=== PATIENT | female | born 1965 | race Caucasian/White ===

== ENCOUNTER 2017-06-08 19:25 | Inpatient (IN) | payer MEDICARE, OTHER ==
[2017-06-08 21:05] LABS: ADD MAN DIFF? NO
[2017-06-08] MEDS: ONDANSETRON 4 MG INJ IV (21:06)
[2017-06-08] MEDS: AZITHROMYCIN 250 MG TAB PO (21:07)
[2017-06-08] MEDS: SOD CHLORIDE 0.9% 500 ML IV (21:07)
[2017-06-08] MEDS: morphine 4 MG/ML VIAL IV (21:07)
[2017-06-08 21:09] LABS: BASOPHILS % 0.3 % (0.0-2.0); EOSINOPHILS # 0.3 10^3/ul (0.0-0.5); EOSINOPHILS % 3.8 % (0.0-7.0); HEMATOCRIT 35.5 % (37.0-47.0); HEMOGLOBIN 12.3 g/dl (12.0-16.0); LYMPHOCYTES # 1.6 10^3/ul (0.8-2.9); LYMPHOCYTES % 19.6 % (15.0-51.0); MEAN CORPUSCULAR HEMOGLOBIN 29.6 pg (29.0-33.0); MEAN CORPUSCULAR HGB CONC 34.6 g/dl (32.0-37.0); MEAN CORPUSCULAR VOLUME 85.3 fl (82.0-101.0); MEAN PLATELET VOLUME 9.3 fl (7.4-10.4); MONOCYTE # 0.6 10^3/ul (0.3-0.9); NEUTROPHIL # 5.4 10^3/ul (1.6-7.5); PLATELET COUNT 248 10^3/UL (140-415); RED BLOOD COUNT 4.16 10^6/ul (4.20-5.40); RED CELL DISTRIBUTION WIDTH 14.3 % (11.5-14.5)
[2017-06-08 21:09] LABS: WHITE BLOOD COUNT 7.9 10^3/ul (4.8-10.8)
[2017-06-08 21:16] LABS: ADD UMIC YES; UR ASCORBIC ACID NEGATIVE (NEGATIVE); UR BACTERIA FEW /HPF (NONE SEEN); UR BILIRUBIN (Dip) NEGATIVE (NEGATIVE); UR BLOOD (Dip) 2+ mg/dL (NEGATIVE); UR CLARITY SLIGHTLY CLOUDY (CLEAR); UR COLOR YELLOW (YELLOW); UR GLUCOSE (Dip) NEGATIVE (NEGATIVE); UR KETONES (Dip) NEGATIVE (NEGATIVE); UR LEUKOCYTE ESTERASE (Dip) 3+ Leu/ul (NEGATIVE); UR NITRITE (Dip) NEGATIVE (NEGATIVE); UR RBC 7 /HPF (0-5); UR SPECIFIC GRAVITY (Dip) 1.004 (1.003-1.030); UR SQUAMOUS EPITHELIAL CELL FEW /HPF (FEW); UR TOTAL PROTEIN (Dip) NEGATIVE (NEGATIVE); UR UROBILINOGEN (Dip) NEGATIVE (NEGATIVE); UR WBC 29 /HPF (0-5)
[2017-06-08 21:29] LABS: ALANINE AMINOTRANSFERASE 28 IU/L (13-69); ALBUMIN 4.1 g/dl (3.3-4.9); ALKALINE PHOSPHATASE 106 IU/L (42-121); ANION GAP 14 (8-16); ASPARTATE AMINO TRANSFERASE 29 IU/L (15-46); BILIRUBIN,INDIRECT 0.1 mg/dl (0-1.1); BILIRUBIN,TOTAL 0.1 mg/dl (0.2-1.3); BLOOD UREA NITROGEN 11 mg/dl (7-20); CALCIUM 9.7 mg/dl (8.4-10.2); CARBON DIOXIDE 27 mmol/L (21-31); CHLORIDE 102 mmol/L (97-110); CREATININE 0.76 mg/dl (0.44-1.00); GLUCOSE 97 mg/dl (70-220); LIPASE 180 U/L (23-300); POTASSIUM 3.8 mmol/L (3.5-5.1); SODIUM 139 mmol/L (135-144); TOTAL PROTEIN 7.5 g/dl (6.1-8.1)
[2017-06-08] MEDS: CEFTRIAXONE 250 MG INJ IM (21:46)
[2017-06-08] MEDS: DICYCLOMINE 20 MG INJ IM (22:30)
[2017-06-08] MEDS ORDERED: ONDANSETRON 4 MG INJ IV (23:00)
[2017-06-08] MEDS ORDERED: ACETAMINOPHEN 325 MG TAB PO (23:00)
[2017-06-08] MEDS: LORAZEPAM 2 MG INJ IV (23:57)
[2017-06-08] MEDS: LIDOCAINE 2% VISC 15 ML CUP PO (23:57)
[2017-06-08] MEDS: SOD CHLORIDE 0.9% 1,000 ML IV (23:58)
[2017-06-09] MEDS ORDERED: NACL 0.9% 3 ML SYG IV
[2017-06-09] MEDS: SOD CHLORIDE 0.9% 1,000 ML IV ×2 (02:41→19:35)
[2017-06-09] MEDS: ONDANSETRON 4 MG INJ IV (02:44)
[2017-06-09] MEDS: CEFTRIAXONE 1 GM/50 ML (PMX) 50 ML IVPB (02:44)
[2017-06-09] MEDS: LORAZEPAM 2 MG INJ IV (04:19)
[2017-06-09 05:22] LABS: ADD MAN DIFF? NO
[2017-06-09 05:29] LABS: WHITE BLOOD COUNT 6.3 10^3/ul (4.8-10.8)
[2017-06-09 05:29] LABS: BASOPHILS % 0.2 % (0.0-2.0); EOSINOPHILS # 0.3 10^3/ul (0.0-0.5); EOSINOPHILS % 4.6 % (0.0-7.0); HEMATOCRIT 32.2 % (37.0-47.0); HEMOGLOBIN 10.9 g/dl (12.0-16.0); LYMPHOCYTES # 1.4 10^3/ul (0.8-2.9); LYMPHOCYTES % 22.4 % (15.0-51.0); MEAN CORPUSCULAR HEMOGLOBIN 29.9 pg (29.0-33.0); MEAN CORPUSCULAR HGB CONC 33.9 g/dl (32.0-37.0); MEAN CORPUSCULAR VOLUME 88.2 fl (82.0-101.0); MEAN PLATELET VOLUME 9.3 fl (7.4-10.4); MONOCYTE # 0.5 10^3/ul (0.3-0.9); MONOCYTES % 8.4 % (0.0-11.0); NEUTROPHILS % 64.1 % (39.0-77.0); PLATELET COUNT 186 10^3/UL (140-415); RED BLOOD COUNT 3.65 10^6/ul (4.20-5.40); RED CELL DISTRIBUTION WIDTH 14.5 % (11.5-14.5)
[2017-06-09 06:22] LABS: ALANINE AMINOTRANSFERASE 32 IU/L (13-69); ALBUMIN 3.3 g/dl (3.3-4.9); ALBUMIN/GLOBULIN RATIO 1.26; ALKALINE PHOSPHATASE 66 IU/L (42-121); ANION GAP 11 (8-16); ASPARTATE AMINO TRANSFERASE 29 IU/L (15-46); BILIRUBIN,INDIRECT 0.1 mg/dl (0-1.1); BILIRUBIN,TOTAL 0.1 mg/dl (0.2-1.3); BLOOD UREA NITROGEN 9 mg/dl (7-20); CALCIUM 8.3 mg/dl (8.4-10.2); CARBON DIOXIDE 27 mmol/L (21-31); CHLORIDE 108 mmol/L (97-110); CHOL/HDL RATIO 2.9 RATIO; CHOLESTEROL 146 mg/dl (100-200); GLUCOSE 93 mg/dl (70-220); HDL CHOLESTEROL 50 mg/dl (37-92); LDL CHOLESTEROL,CALCULATED 77 mg/dl; MAGNESIUM 1.6 mg/dl (1.7-2.5); SODIUM 142 mmol/L (135-144); TOTAL PROTEIN 5.9 g/dl (6.1-8.1); TRIGLYCERIDES 96 mg/dl (0-149)
[2017-06-09 07:46] LABS: HEMOGLOBIN A1C 5.5 % (0-5.9)
[2017-06-09 10:17] LABS: ADD MAN DIFF? NO
[2017-06-09 10:19] LABS: WHITE BLOOD COUNT 5.8 10^3/ul (4.8-10.8)
[2017-06-09 10:19] LABS: BASOPHILS % 0.3 % (0.0-2.0); EOSINOPHILS # 0.3 10^3/ul (0.0-0.5); HEMATOCRIT 31.6 % (37.0-47.0); HEMOGLOBIN 10.6 g/dl (12.0-16.0); LYMPHOCYTES # 1.4 10^3/ul (0.8-2.9); LYMPHOCYTES % 24.5 % (15.0-51.0); MEAN CORPUSCULAR HEMOGLOBIN 29.7 pg (29.0-33.0); MEAN CORPUSCULAR HGB CONC 33.5 g/dl (32.0-37.0); MEAN CORPUSCULAR VOLUME 88.5 fl (82.0-101.0); MEAN PLATELET VOLUME 9.1 fl (7.4-10.4); MONOCYTE # 0.5 10^3/ul (0.3-0.9); MONOCYTES % 8.5 % (0.0-11.0); NEUTROPHIL # 3.5 10^3/ul (1.6-7.5); NEUTROPHILS % 61.5 % (39.0-77.0); PLATELET COUNT 201 10^3/UL (140-415); RED BLOOD COUNT 3.57 10^6/ul (4.20-5.40); RED CELL DISTRIBUTION WIDTH 14.4 % (11.5-14.5)
[2017-06-09] MEDS ORDERED: DIATR MEGLU/DIATRIZOATE SODIUM 120 ML BTL (11:05)
[2017-06-09] MEDS: MAGNESIUM SULFATE 2 GM/50 ML 50 ML IVPB (13:40)
[2017-06-09] MEDS: morphine 2 MG INJ IV ×2 (16:26→22:20)
[2017-06-09 17:38] LABS: ADD MAN DIFF? NO
[2017-06-09 17:42] LABS: WHITE BLOOD COUNT 6.6 10^3/ul (4.8-10.8)
[2017-06-09 17:42] LABS: BASOPHILS % 0.3 % (0.0-2.0); EOSINOPHILS # 0.3 10^3/ul (0.0-0.5); EOSINOPHILS % 4.7 % (0.0-7.0); HEMATOCRIT 37.4 % (37.0-47.0); HEMOGLOBIN 12.4 g/dl (12.0-16.0); LYMPHOCYTES # 1.3 10^3/ul (0.8-2.9); LYMPHOCYTES % 19.1 % (15.0-51.0); MEAN CORPUSCULAR HEMOGLOBIN 29.3 pg (29.0-33.0); MEAN CORPUSCULAR HGB CONC 33.2 g/dl (32.0-37.0); MEAN CORPUSCULAR VOLUME 88.4 fl (82.0-101.0); MONOCYTE # 0.5 10^3/ul (0.3-0.9); MONOCYTES % 7.5 % (0.0-11.0); NEUTROPHIL # 4.5 10^3/ul (1.6-7.5); NEUTROPHILS % 67.9 % (39.0-77.0); PLATELET COUNT 228 10^3/UL (140-415); RED BLOOD COUNT 4.23 10^6/ul (4.20-5.40); RED CELL DISTRIBUTION WIDTH 14.5 % (11.5-14.5)
[2017-06-09 22:35] LABS: ADD MAN DIFF? NO
[2017-06-09 22:36] LABS: BASOPHILS % 0.3 % (0.0-2.0); EOSINOPHILS # 0.3 10^3/ul (0.0-0.5); EOSINOPHILS % 4.4 % (0.0-7.0); HEMOGLOBIN 11.5 g/dl (12.0-16.0); LYMPHOCYTES # 1.3 10^3/ul (0.8-2.9); LYMPHOCYTES % 20.7 % (15.0-51.0); MEAN CORPUSCULAR HEMOGLOBIN 29.9 pg (29.0-33.0); MEAN CORPUSCULAR HGB CONC 33.8 g/dl (32.0-37.0); MEAN CORPUSCULAR VOLUME 88.5 fl (82.0-101.0); MEAN PLATELET VOLUME 8.8 fl (7.4-10.4); MONOCYTE # 0.6 10^3/ul (0.3-0.9); MONOCYTES % 9.4 % (0.0-11.0); NEUTROPHIL # 4.1 10^3/ul (1.6-7.5); NEUTROPHILS % 64.7 % (39.0-77.0); PLATELET COUNT 202 10^3/UL (140-415); RED BLOOD COUNT 3.84 10^6/ul (4.20-5.40); RED CELL DISTRIBUTION WIDTH 14.4 % (11.5-14.5)
[2017-06-09 22:36] LABS: WHITE BLOOD COUNT 6.4 10^3/ul (4.8-10.8)
[2017-06-10] MEDS: CEFTRIAXONE 1 GM/50 ML (PMX) 50 ML IVPB (00:38)
[2017-06-10] MEDS: morphine 2 MG INJ IV (05:05)
[2017-06-10 05:30] LABS: ADD MAN DIFF? NO
[2017-06-10 05:32] LABS: BASOPHILS % 0.3 % (0.0-2.0); EOSINOPHILS # 0.3 10^3/ul (0.0-0.5); EOSINOPHILS % 4.9 % (0.0-7.0); HEMATOCRIT 33.2 % (37.0-47.0); HEMOGLOBIN 11.1 g/dl (12.0-16.0); LYMPHOCYTES # 1.4 10^3/ul (0.8-2.9); LYMPHOCYTES % 23.8 % (15.0-51.0); MEAN CORPUSCULAR HEMOGLOBIN 29.7 pg (29.0-33.0); MEAN CORPUSCULAR HGB CONC 33.4 g/dl (32.0-37.0); MEAN CORPUSCULAR VOLUME 88.8 fl (82.0-101.0); MEAN PLATELET VOLUME 9.2 fl (7.4-10.4); MONOCYTE # 0.5 10^3/ul (0.3-0.9); MONOCYTES % 9.3 % (0.0-11.0); NEUTROPHIL # 3.5 10^3/ul (1.6-7.5); NEUTROPHILS % 61.4 % (39.0-77.0); PLATELET COUNT 201 10^3/UL (140-415); RED BLOOD COUNT 3.74 10^6/ul (4.20-5.40); RED CELL DISTRIBUTION WIDTH 14.6 % (11.5-14.5)
[2017-06-10 05:32] LABS: WHITE BLOOD COUNT 5.7 10^3/ul (4.8-10.8)
[2017-06-10] MEDS: SOD CHLORIDE 0.9% 1,000 ML IV ×2 (05:43→16:12)
[2017-06-10 06:07] LABS: ALANINE AMINOTRANSFERASE 30 IU/L (13-69); ALBUMIN 3.3 g/dl (3.3-4.9); ALBUMIN/GLOBULIN RATIO 1.22; ALKALINE PHOSPHATASE 62 IU/L (42-121); ANION GAP 14 (8-16); ASPARTATE AMINO TRANSFERASE 34 IU/L (15-46); BILIRUBIN,INDIRECT 0.3 mg/dl (0-1.1); BILIRUBIN,TOTAL 0.3 mg/dl (0.2-1.3); BLOOD UREA NITROGEN 5 mg/dl (7-20); CARBON DIOXIDE 25 mmol/L (21-31); CHLORIDE 109 mmol/L (97-110); CREATININE 0.62 mg/dl (0.44-1.00); GLUCOSE 98 mg/dl (70-220); POTASSIUM 3.8 mmol/L (3.5-5.1); SODIUM 144 mmol/L (135-144)
[2017-06-10] MEDS: ACETAMINOPHEN 325 MG TAB PO ×2 (12:58→20:27)
[2017-06-10] MEDS: PROPRANOLOL 20 MG TAB PO ×2 (12:58→20:28)
[2017-06-10] MEDS: [UNRECOGNIZED DRUG - REMARK] XX (17:30)
[2017-06-10] MEDS: clonAZEPAM 0.5 MG TAB PO (20:27)
[2017-06-10] MEDS: BENZTROPINE 1 MG TAB PO (20:28)
[2017-06-10] MEDS ORDERED: QUETIAPINE FUMARATE 300 MG PO (21:00)
[2017-06-11] MEDS: CEFTRIAXONE 1 GM/50 ML (PMX) 50 ML IVPB (00:32)
[2017-06-11] MEDS: LORAZEPAM 2 MG INJ IV (00:33)
[2017-06-11] MEDS: NICOTINE (21 MG/24 HR) PATCH TRANSDERM ×2 (00:33→09:06)
[2017-06-11] MEDS: [UNRECOGNIZED DRUG - REMARK] XX ×3 (01:30→15:49)
[2017-06-11] MEDS: SOD CHLORIDE 0.9% 1,000 ML IV ×3 (01:43→21:43)
[2017-06-11 05:49] LABS: ADD MAN DIFF? NO
[2017-06-11 06:09] LABS: WHITE BLOOD COUNT 5.7 10^3/ul (4.8-10.8)
[2017-06-11 06:09] LABS: BASOPHILS % 0.2 % (0.0-2.0); EOSINOPHILS # 0.3 10^3/ul (0.0-0.5); EOSINOPHILS % 4.6 % (0.0-7.0); HEMATOCRIT 31.8 % (37.0-47.0); HEMOGLOBIN 10.6 g/dl (12.0-16.0); LYMPHOCYTES # 1.1 10^3/ul (0.8-2.9); LYMPHOCYTES % 19.5 % (15.0-51.0); MEAN CORPUSCULAR HEMOGLOBIN 29.3 pg (29.0-33.0); MEAN CORPUSCULAR HGB CONC 33.3 g/dl (32.0-37.0); MEAN CORPUSCULAR VOLUME 87.8 fl (82.0-101.0); MEAN PLATELET VOLUME 9.3 fl (7.4-10.4); MONOCYTE # 0.4 10^3/ul (0.3-0.9); MONOCYTES % 6.3 % (0.0-11.0); NEUTROPHIL # 3.9 10^3/ul (1.6-7.5); PLATELET COUNT 204 10^3/UL (140-415); RED BLOOD COUNT 3.62 10^6/ul (4.20-5.40)
[2017-06-11 06:54] LABS: ANION GAP 12 (8-16); BLOOD UREA NITROGEN 3 mg/dl (7-20); CALCIUM 8.3 mg/dl (8.4-10.2); CARBON DIOXIDE 23 mmol/L (21-31); CHLORIDE 111 mmol/L (97-110); CREATININE 0.54 mg/dl (0.44-1.00); GLUCOSE 96 mg/dl (70-220); SODIUM 142 mmol/L (135-144)
[2017-06-11] MEDS: BENZTROPINE 1 MG TAB PO ×2 (09:03→22:06)
[2017-06-11] MEDS: clonAZEPAM 0.5 MG TAB PO ×2 (09:05→22:07)
[2017-06-11] MEDS: DONEPEZIL 5 MG TAB PO (09:05)
[2017-06-11] MEDS: ESCITALOPRAM 10 MG TAB PO (09:05)
[2017-06-11] MEDS: PROPRANOLOL 20 MG TAB PO ×3 (09:06→22:06)
[2017-06-11] MEDS: INFLUENZA VIRUS VACCINE 0.5 ML (DISPENSING) IM* (09:08)
[2017-06-12] MEDS: CEFTRIAXONE 1 GM/50 ML (PMX) 50 ML IVPB (00:54)
[2017-06-12] MEDS: LORAZEPAM 2 MG INJ IV ×2 (00:54→06:00)
[2017-06-12] MEDS: [UNRECOGNIZED DRUG - REMARK] XX ×2 (00:55→09:06)
[2017-06-12 05:02] LABS: WHITE BLOOD COUNT 5.4 10^3/ul (4.8-10.8)
[2017-06-12 05:02] LABS: ADD MAN DIFF? NO; BASOPHILS % 0.4 % (0.0-2.0); EOSINOPHILS # 0.3 10^3/ul (0.0-0.5); EOSINOPHILS % 6.1 % (0.0-7.0); HEMATOCRIT 33.6 % (37.0-47.0); HEMOGLOBIN 11.2 g/dl (12.0-16.0); LYMPHOCYTES # 1.5 10^3/ul (0.8-2.9); LYMPHOCYTES % 27.7 % (15.0-51.0); MEAN CORPUSCULAR HEMOGLOBIN 29.6 pg (29.0-33.0); MEAN CORPUSCULAR HGB CONC 33.3 g/dl (32.0-37.0); MEAN CORPUSCULAR VOLUME 88.7 fl (82.0-101.0); MEAN PLATELET VOLUME 8.7 fl (7.4-10.4); MONOCYTE # 0.6 10^3/ul (0.3-0.9); MONOCYTES % 10.6 % (0.0-11.0); NEUTROPHIL # 2.9 10^3/ul (1.6-7.5); NEUTROPHILS % 54.6 % (39.0-77.0); PLATELET COUNT 206 10^3/UL (140-415); RED BLOOD COUNT 3.79 10^6/ul (4.20-5.40)
[2017-06-12 05:26] LABS: ANION GAP 10 (8-16); BLOOD UREA NITROGEN 3 mg/dl (7-20); CARBON DIOXIDE 26 mmol/L (21-31); CHLORIDE 109 mmol/L (97-110); CREATININE 0.57 mg/dl (0.44-1.00); GLUCOSE 97 mg/dl (70-220); POTASSIUM 3.7 mmol/L (3.5-5.1); SODIUM 141 mmol/L (135-144)
[2017-06-12] MEDS: clonAZEPAM 0.5 MG TAB PO (09:05)
[2017-06-12] MEDS: DONEPEZIL 5 MG TAB PO (09:05)
[2017-06-12] MEDS: ESCITALOPRAM 10 MG TAB PO (09:05)
[2017-06-12] MEDS: BENZTROPINE 1 MG TAB PO (09:05)
[2017-06-12] MEDS: ACETAMINOPHEN 325 MG TAB PO (09:05)
[2017-06-12] MEDS: NICOTINE (21 MG/24 HR) PATCH TRANSDERM (09:06)
[2017-06-12] MEDS: PROPRANOLOL 20 MG TAB PO ×2 (09:06→14:32)
[2017-06-12] MEDS: SOD CHLORIDE 0.9% 1,000 ML IV (09:09)
[2017-06-12] MEDS ORDERED: QUETIAPINE FUMARATE 400 MG PO (21:00)
== END 2017-06-12 14:47 | disposition home or self-care (01) | DRG 389 ==
LOC: PP2 22:51 → E/R 19:25 → PP2 06-09 02:22
PROC: 3E0234Z Introduction of Serum, Toxoid and Vaccine into Muscle, Percutaneous Approach (ICD-10-PCS; principal; 2017-06-11)
DX: K56.609 Unspecified intestinal obstruction, unspecified as to partial versus complete obstruction (principal); N39.0 Urinary tract infection, site not specified; F20.9 Schizophrenia, unspecified; F17.210 Nicotine dependence, cigarettes, uncomplicated; S46.111A Strain of muscle, fascia and tendon of long head of biceps, right arm, initial encounter; X58.XXXA Exposure to other specified factors, initial encounter; Z23 Encounter for immunization
CPT/HCPCS: 36415; 71045; 73221; 73222; 74018; 74176; 74250; 80048; 80053; 80061; 81001; 83036; 83690; 83735; 84100; 84443; 85025; 87070; 87110; 87591; 90686; 96372; 96374; 96375; 97162; 99285-25

== ENCOUNTER 2017-06-17 15:26 | Inpatient (IN) | payer MEDICARE, OTHER ==
[2017-06-18] MEDS: SOD CHLORIDE 0.9% 500 ML IV (01:03)
[2017-06-18 01:58] LABS: WHITE BLOOD COUNT 9.1 10^3/ul (4.8-10.8)
[2017-06-18 01:58] LABS: HEMATOCRIT 32.7 % (37.0-47.0); HEMOGLOBIN 11.1 g/dl (12.0-16.0); MEAN CORPUSCULAR HEMOGLOBIN 29.2 pg (29.0-33.0); MEAN CORPUSCULAR HGB CONC 33.9 g/dl (32.0-37.0); MEAN CORPUSCULAR VOLUME 86.1 fl (82.0-101.0); MEAN PLATELET VOLUME 9.2 fl (7.4-10.4); PLATELET COUNT 253 10^3/UL (140-415); RED CELL DISTRIBUTION WIDTH 13.5 % (11.5-14.5)
[2017-06-18 02:01] LABS: ADD MAN DIFF? YES; POSITIVE DIFF @See below
[2017-06-18 02:11] LABS: ADD UMIC YES; UR ASCORBIC ACID NEGATIVE (NEGATIVE); UR BACTERIA FEW /HPF (NONE SEEN); UR BILIRUBIN (Dip) NEGATIVE (NEGATIVE); UR BLOOD (Dip) 1+ mg/dL (NEGATIVE); UR CLARITY SLIGHTLY CLOUDY (CLEAR); UR COLOR YELLOW (YELLOW); UR GLUCOSE (Dip) NEGATIVE (NEGATIVE); UR KETONES (Dip) NEGATIVE (NEGATIVE); UR LEUKOCYTE ESTERASE (Dip) 3+ Leu/ul (NEGATIVE); UR NITRITE (Dip) NEGATIVE (NEGATIVE); UR RBC 6 /HPF (0-5); UR SPECIFIC GRAVITY (Dip) 1.009 (1.003-1.030); UR SQUAMOUS EPITHELIAL CELL FEW /HPF (FEW); UR TOTAL PROTEIN (Dip) NEGATIVE (NEGATIVE); UR UROBILINOGEN (Dip) NEGATIVE (NEGATIVE); UR WBC 32 /HPF (0-5)
[2017-06-18 02:17] LABS: ALANINE AMINOTRANSFERASE 30 IU/L (13-69); ALBUMIN 3.9 g/dl (3.3-4.9); ALBUMIN/GLOBULIN RATIO 1.25; ALKALINE PHOSPHATASE 72 IU/L (42-121); ANION GAP 15 (8-16); ASPARTATE AMINO TRANSFERASE 17 IU/L (15-46); BILIRUBIN,INDIRECT 0.4 mg/dl (0-1.1); BILIRUBIN,TOTAL 0.4 mg/dl (0.2-1.3); BLOOD UREA NITROGEN 5 mg/dl (7-20); CALCIUM 8.9 mg/dl (8.4-10.2); CARBON DIOXIDE 22 mmol/L (21-31); CHLORIDE 105 mmol/L (97-110); CREATININE 0.59 mg/dl (0.44-1.00); GLUCOSE 121 mg/dl (70-220); LIPASE 75 U/L (23-300); POTASSIUM 3.2 mmol/L (3.5-5.1); SODIUM 139 mmol/L (135-144)
[2017-06-18] MEDS: morphine 4 MG/ML VIAL IV (02:21)
[2017-06-18] MEDS: ONDANSETRON 4 MG INJ IV ×2 (02:21→12:50)
[2017-06-18 03:50] LABS: BAND NEUTROPHILS #M 0.9 10^3/ul (0.0-0.6); BAND NEUTROPHILS % (M) 10 % (0-4); EOSINOPHILS % (M) 6 % (0-7); GIANT THROMBO% (M) 3 % (0-0); LYMPHOCYTES #M 1.4 10^3/ul (0.8-2.9); LYMPHOCYTES % (M) 16 % (15-51); MONOCYTES % (M) 11 % (0-11); PLATELET ESTIMATE NORMAL; PLATELET MORPHOLOGY COMMENT @See below; POIKILOCYTOSIS 1+ (0-0); POLYCHROMASIA 1+ (0-0); REACTIVE LYMPHOCYTES% (M) 1 % (0-0); SEG NEUT #M 5.1 10^3/ul (1.7-7.5); SEGMENTED NEUTROPHILS (M) % 55 % (39-77); SMUDGE%M 4 % (0-0)
[2017-06-18] MEDS: SOD CHLORIDE 0.9% 1,000 ML IV ×3 (05:14→16:33)
[2017-06-18] MEDS ORDERED: DOCUSATE SODIUM 100 MG CAP PO (05:30)
[2017-06-18] MEDS ORDERED: NACL 0.9% 3 ML SYG IV (05:30)
[2017-06-18] MEDS ORDERED: BISACODYL (EC) 5 MG TAB PO (05:30)
[2017-06-18] MEDS: PIPER-TAZO 3.375 GM IV (PMX) 100 ML IVPB ×2 (08:50→12:50)
[2017-06-18] MEDS: QUETIAPINE FUMARATE 400 MG XX ×2 (09:00→17:00)
[2017-06-18] MEDS: clonAZEPAM 0.5 MG TAB PO ×2 (09:20→21:59)
[2017-06-18] MEDS: morphine 2 MG INJ IV (12:50)
[2017-06-18] MEDS: POTASSIUM CHLORIDE (SR) 20 MEQ TAB PO (16:32)
[2017-06-18] MEDS ORDERED: QUETIAPINE FUMARATE 400 MG PO (21:00)
[2017-06-18] MEDS: ESCITALOPRAM 10 MG TAB PO (21:59)
[2017-06-18] MEDS: metroNIDAZOLE 500 MG TAB PO (21:59)
[2017-06-19] MEDS: QUETIAPINE FUMARATE 400 MG XX ×2 (01:00→09:00)
[2017-06-19 05:16] LABS: WHITE BLOOD COUNT 5.8 10^3/ul (4.8-10.8)
[2017-06-19 05:16] LABS: HEMATOCRIT 29.6 % (37.0-47.0); HEMOGLOBIN 10.1 g/dl (12.0-16.0); MEAN CORPUSCULAR HEMOGLOBIN 29.8 pg (29.0-33.0); MEAN CORPUSCULAR HGB CONC 34.1 g/dl (32.0-37.0); MEAN CORPUSCULAR VOLUME 87.3 fl (82.0-101.0); MEAN PLATELET VOLUME 9.1 fl (7.4-10.4); PLATELET COUNT 254 10^3/UL (140-415); RED BLOOD COUNT 3.39 10^6/ul (4.20-5.40); RED CELL DISTRIBUTION WIDTH 13.9 % (11.5-14.5)
[2017-06-19 05:18] LABS: ADD MAN DIFF? YES; POSITIVE DIFF @See below
[2017-06-19 05:38] LABS: ALANINE AMINOTRANSFERASE 30 IU/L (13-69); ALBUMIN 2.9 g/dl (3.3-4.9); ALBUMIN/GLOBULIN RATIO 1.07; ALKALINE PHOSPHATASE 57 IU/L (42-121); ANION GAP 13 (8-16); ASPARTATE AMINO TRANSFERASE 14 IU/L (15-46); BILIRUBIN,INDIRECT 0.1 mg/dl (0-1.1); BILIRUBIN,TOTAL 0.1 mg/dl (0.2-1.3); BLOOD UREA NITROGEN 3 mg/dl (7-20); CALCIUM 8.3 mg/dl (8.4-10.2); CARBON DIOXIDE 21 mmol/L (21-31); CHLORIDE 112 mmol/L (97-110); GLUCOSE 96 mg/dl (70-220); POTASSIUM 3.5 mmol/L (3.5-5.1); SODIUM 142 mmol/L (135-144); TOTAL PROTEIN 5.6 g/dl (6.1-8.1)
[2017-06-19 06:21] LABS: HIV 1&2 ANTIBODY NEGATIVE (NEGATIVE)
[2017-06-19] MEDS: SOD CHLORIDE 0.9% 1,000 ML IV ×2 (06:51→10:00)
[2017-06-19 07:59] LABS: ANISOCYTOSIS 1+ (0-0); BAND NEUTROPHILS #M 0.2 10^3/ul (0.0-0.6); BAND NEUTROPHILS % (M) 5 % (0-4); BASOPHILS % (M) 1 % (0-2); BURR CELLS 1+ (0-0); EOSINOPHILS % (M) 4 % (0-7); GIANT THROMBO% (M) 2 % (0-0); LYMPHOCYTES #M 1.3 10^3/ul (0.8-2.9); LYMPHOCYTES % (M) 24 % (15-51); MICROCYTOSIS 1+ (0-0); MONOCYTE #M 0.3 10^3/ul (0.3-0.9); MONOCYTES % (M) 6 % (0-11); PLATELET ESTIMATE NORMAL; POIKILOCYTOSIS 1+ (0-0); REACTIVE LYMPHOCYTES #M 0.1 10^3/ul (0.0-0.0); REACTIVE LYMPHOCYTES% (M) 2 % (0-0); SEG NEUT #M 3.4 10^3/ul (1.7-7.5); SEGMENTED NEUTROPHILS (M) % 58 % (39-77); SMUDGE%M 5 % (0-0)
[2017-06-19] MEDS: clonAZEPAM 0.5 MG TAB PO ×2 (09:59→21:58)
[2017-06-19] MEDS: metroNIDAZOLE 500 MG TAB PO ×3 (10:00→22:00)
[2017-06-19] MEDS: DOXYCYCLINE 100 MG TAB PO ×2 (11:25→22:00)
[2017-06-19] MEDS: CEFOTAXIME 2 GM/50 ML (PMX) 50 ML IVPB ×2 (14:15→22:00)
[2017-06-19] MEDS: ONDANSETRON 4 MG INJ IV (14:24)
[2017-06-19] MEDS: QUETIAPINE 100 MG TAB PO ×2 (15:30→22:00)
[2017-06-19] MEDS: ESCITALOPRAM 10 MG TAB PO (21:59)
[2017-06-19] MEDS: KETOROLAC 30 MG INJ IV (22:01)
[2017-06-20] MEDS: SOD CHLORIDE 0.9% 1,000 ML IV (01:55)
[2017-06-20] MEDS: CEFOTAXIME 2 GM/50 ML (PMX) 50 ML IVPB ×3 (05:40→22:55)
[2017-06-20] MEDS: metroNIDAZOLE 500 MG TAB PO ×3 (05:40→22:55)
[2017-06-20] MEDS: clonAZEPAM 0.5 MG TAB PO ×2 (09:46→20:26)
[2017-06-20] MEDS: QUETIAPINE 100 MG TAB PO ×2 (09:46→20:26)
[2017-06-20] MEDS: DOXYCYCLINE 100 MG TAB PO ×2 (09:46→20:26)
[2017-06-20] MEDS: CALCIUM POLYCARBOPHIL 625 MG TAB PO (18:13)
[2017-06-20] MEDS: ESCITALOPRAM 10 MG TAB PO (20:26)
[2017-06-21 05:58] LABS: ADD MAN DIFF? NO
[2017-06-21 06:07] LABS: WHITE BLOOD COUNT 3.7 10^3/ul (4.8-10.8)
[2017-06-21 06:07] LABS: BASOPHILS % 0.5 % (0.0-2.0); EOSINOPHILS # 0.3 10^3/ul (0.0-0.5); EOSINOPHILS % 9.2 % (0.0-7.0); HEMATOCRIT 29.3 % (37.0-47.0); HEMOGLOBIN 10.1 g/dl (12.0-16.0); LYMPHOCYTES # 1.3 10^3/ul (0.8-2.9); LYMPHOCYTES % 36.1 % (15.0-51.0); MEAN CORPUSCULAR HEMOGLOBIN 29.5 pg (29.0-33.0); MEAN CORPUSCULAR HGB CONC 34.5 g/dl (32.0-37.0); MEAN CORPUSCULAR VOLUME 85.7 fl (82.0-101.0); MEAN PLATELET VOLUME 9.2 fl (7.4-10.4); MONOCYTE # 0.5 10^3/ul (0.3-0.9); MONOCYTES % 14.7 % (0.0-11.0); NEUTROPHIL # 1.4 10^3/ul (1.6-7.5); NEUTROPHILS % 38.1 % (39.0-77.0); PLATELET COUNT 272 10^3/UL (140-415); RED BLOOD COUNT 3.42 10^6/ul (4.20-5.40); RED CELL DISTRIBUTION WIDTH 13.7 % (11.5-14.5)
[2017-06-21] MEDS: CEFOTAXIME 2 GM/50 ML (PMX) 50 ML IVPB ×3 (06:08→21:49)
[2017-06-21] MEDS: metroNIDAZOLE 500 MG TAB PO ×3 (06:08→21:49)
[2017-06-21 06:58] LABS: ANION GAP 11 (8-16)
[2017-06-21 07:32] LABS: BLOOD UREA NITROGEN 4 mg/dl (7-20); CALCIUM 8.6 mg/dl (8.4-10.2); CARBON DIOXIDE 22 mmol/L (21-31); CHLORIDE 113 mmol/L (97-110); GLUCOSE 93 mg/dl (70-220); MAGNESIUM 1.4 mg/dl (1.7-2.5); PHOSPHORUS 3.7 mg/dl (2.5-4.9); SODIUM 143 mmol/L (135-144)
[2017-06-21 07:41] LABS: POTASSIUM 2.9 mmol/L (3.5-5.1)
[2017-06-21] MEDS: DOXYCYCLINE 100 MG TAB PO ×2 (08:07→20:08)
[2017-06-21] MEDS: QUETIAPINE 100 MG TAB PO ×2 (08:07→20:08)
[2017-06-21] MEDS: ACETAMINOPHEN 325 MG TAB PO ×2 (08:07→20:08)
[2017-06-21] MEDS: clonAZEPAM 0.5 MG TAB PO ×2 (08:11→20:08)
[2017-06-21] MEDS: CALCIUM POLYCARBOPHIL 625 MG TAB PO (08:41)
[2017-06-21] MEDS: POTASSIUM CHLORIDE (SR) 20 MEQ TAB PO (10:51)
[2017-06-21 12:44] LABS: MAGNESIUM 1.4 mg/dl (1.7-2.5)
[2017-06-21] MEDS: MAGNESIUM SULFATE 3 GM in DEXTROSE 5% 100 ML IVPB (18:03)
[2017-06-21 18:37] LABS: ANION GAP 12 (8-16); BLOOD UREA NITROGEN 3 mg/dl (7-20); CALCIUM 8.7 mg/dl (8.4-10.2); CARBON DIOXIDE 23 mmol/L (21-31); CHLORIDE 111 mmol/L (97-110); CREATININE 0.55 mg/dl (0.44-1.00); GLUCOSE 96 mg/dl (70-220); POTASSIUM 3.7 mmol/L (3.5-5.1); SODIUM 142 mmol/L (135-144)
[2017-06-21] MEDS: ESCITALOPRAM 10 MG TAB PO (20:07)
[2017-06-22] MEDS: metroNIDAZOLE 500 MG TAB PO (06:02)
[2017-06-22] MEDS: CEFOTAXIME 2 GM/50 ML (PMX) 50 ML IVPB (06:03)
[2017-06-22 06:14] LABS: ANION GAP 11 (8-16); BLOOD UREA NITROGEN 4 mg/dl (7-20); CALCIUM 8.6 mg/dl (8.4-10.2); CARBON DIOXIDE 25 mmol/L (21-31); CHLORIDE 111 mmol/L (97-110); CREATININE 0.62 mg/dl (0.44-1.00); GLUCOSE 87 mg/dl (70-220); PHOSPHORUS 3.2 mg/dl (2.5-4.9); POTASSIUM 4.3 mmol/L (3.5-5.1); SODIUM 143 mmol/L (135-144)
[2017-06-22] MEDS: QUETIAPINE 100 MG TAB PO (08:38)
[2017-06-22] MEDS: DOXYCYCLINE 100 MG TAB PO (08:38)
[2017-06-22] MEDS: clonAZEPAM 0.5 MG TAB PO (08:39)
[2017-06-22] MEDS: CALCIUM POLYCARBOPHIL 625 MG TAB PO (09:30)
== END 2017-06-22 13:55 | disposition left against medical advice (07) | DRG 445 ==
LOC: MS2 06-19 05:16 → E/R 15:26 → MS3 06-18 04:52
DX: K80.20 Calculus of gallbladder without cholecystitis without obstruction (principal); N39.0 Urinary tract infection, site not specified; E87.8 Other disorders of electrolyte and fluid balance, not elsewhere classified; E88.09 Other disorders of plasma-protein metabolism, not elsewhere classified; F20.9 Schizophrenia, unspecified; D64.9 Anemia, unspecified; D25.0 Submucous leiomyoma of uterus; N73.9 Female pelvic inflammatory disease, unspecified; F17.210 Nicotine dependence, cigarettes, uncomplicated; Z59.0 Homelessness
CPT/HCPCS: 74176; 76830; 76856; 80048; 80053; 81001; 83690; 83735; 84100; 85025; 86703; 87075; 87086; 87591; 99217

== ENCOUNTER 2017-07-29 15:19 | Emergency (ER) | payer MEDICARE, OTHER ==
[2017-07-29] MEDS: SOD CHLORIDE 0.9% IV (19:22)
[2017-07-29] MEDS: ONDANSETRON 4 MG INJ IV (19:25)
[2017-07-29] MEDS: KETOROLAC 30 MG INJ IV (19:26)
[2017-07-29 19:36] LABS: ADD MAN DIFF? NO
[2017-07-29 19:37] LABS: URINE BLOOD (Dip) POC Negative (NEGATIVE); URINE GLUCOSE (Dip) POC Negative (NEGATIVE); URINE KETONES (Dip) POC Negative (NEGATIVE); URINE LEUKOCYTE EST (Dip) POC 1+ (NEGATIVE); URINE NITRITE (Dip) POC Negative (NEGATIVE); URINE TOTAL PROTEIN POC Negative (NEGATIVE)
[2017-07-29 19:38] LABS: WHITE BLOOD COUNT 11.2 10^3/ul (4.8-10.8)
[2017-07-29 19:38] LABS: BASOPHILS % 0.4 % (0.0-2.0); EOSINOPHILS # 0.5 10^3/ul (0.0-0.5); EOSINOPHILS % 4.8 % (0.0-7.0); HEMATOCRIT 32.7 % (37.0-47.0); HEMOGLOBIN 11.1 g/dl (12.0-16.0); LYMPHOCYTES # 2.4 10^3/ul (0.8-2.9); LYMPHOCYTES % 21.6 % (15.0-51.0); MEAN CORPUSCULAR HEMOGLOBIN 29.1 pg (29.0-33.0); MEAN CORPUSCULAR HGB CONC 33.9 g/dl (32.0-37.0); MEAN CORPUSCULAR VOLUME 85.8 fl (82.0-101.0); MONOCYTE # 0.8 10^3/ul (0.3-0.9); MONOCYTES % 7.3 % (0.0-11.0); NEUTROPHIL # 7.3 10^3/ul (1.6-7.5); NEUTROPHILS % 65.4 % (39.0-77.0); PLATELET COUNT 261 10^3/UL (140-415); RED BLOOD COUNT 3.81 10^6/ul (4.20-5.40); RED CELL DISTRIBUTION WIDTH 14.1 % (11.5-14.5)
[2017-07-29 19:56] LABS: ALANINE AMINOTRANSFERASE 25 IU/L (13-69); ALBUMIN 3.6 g/dl (3.3-4.9); ALBUMIN/GLOBULIN RATIO 1.24; ALKALINE PHOSPHATASE 78 IU/L (42-121); ANION GAP 12 (8-16); ASPARTATE AMINO TRANSFERASE 18 IU/L (15-46); BILIRUBIN,INDIRECT 0.1 mg/dl (0-1.1); BILIRUBIN,TOTAL 0.1 mg/dl (0.2-1.3); BLOOD UREA NITROGEN 5 mg/dl (7-20); CALCIUM 8.8 mg/dl (8.4-10.2); CARBON DIOXIDE 26 mmol/L (21-31); CHLORIDE 106 mmol/L (97-110); CREATININE 0.56 mg/dl (0.44-1.00); GLUCOSE 85 mg/dl (70-220); LIPASE 166 U/L (23-300); POTASSIUM 3.5 mmol/L (3.5-5.1); SODIUM 140 mmol/L (135-144); TOTAL PROTEIN 6.5 g/dl (6.1-8.1)
[2017-07-29 19:58] LABS: ETHANOL < 10.0 mg/dl
[2017-07-29] MEDS: CIPROFLOXACIN 500 MG TAB PO (20:19)
[2017-07-29 20:39] LABS: CANNABINOIDS Negative (NEGATIVE); COCAINE Negative (NEGATIVE); OPIATES Negative (NEGATIVE)
[2017-07-29 20:41] LABS: AMPHETAMINE/METHAMPHETAMINE Negative (NEGATIVE); BARBITURATES Negative (NEGATIVE); BENZODIAZEPINES Negative (NEGATIVE)
== END 2017-07-29 21:03 | disposition home or self-care (01) ==
LOC: FTE 15:19
DX: N39.0 Urinary tract infection, site not specified (principal); D64.9 Anemia, unspecified; Z87.891 Personal history of nicotine dependence
CPT/HCPCS: 36415; 74176; 80053; 80306; 80307; 81003; 83690; 85025; 96361; 96374; 96375; 99285-25

== ENCOUNTER 2017-12-05 14:56 | Day surgery (SDC) | payer MEDICARE, OTHER ==
[2017-12-05] MEDS ORDERED: METOCLOPRAMIDE 10 MG INJ (16:20)
[2017-12-05] MEDS ORDERED: LIDOCAINE 4% SOLUTION 50 ML BTL (16:20)
[2017-12-05] MEDS ORDERED: FENTAnyl 50 MCG/ML VIAL (17:11)
[2017-12-05] MEDS ORDERED: MIDAZOLAM 1 MG/ML 2 ML INJ ×2 (17:11)
== END 2017-12-05 17:34 | disposition home or self-care (01) ==
LOC: GIL 14:56
DX: Z12.11 Encounter for screening for malignant neoplasm of colon (principal); K20.9 Esophagitis, unspecified; K29.50 Unspecified chronic gastritis without bleeding; K64.4 Residual hemorrhoidal skin tags; K64.8 Other hemorrhoids; I10 Essential (primary) hypertension
CPT/HCPCS: 43239; 88305; 88313

== ENCOUNTER 2018-01-06 12:27 | Emergency (ER) | payer MEDICARE, OTHER ==
[2018-01-06 13:26] LABS: ADD MAN DIFF? NO
[2018-01-06 13:31] LABS: BASOPHILS % 0.5 % (0.0-2.0); EOSINOPHILS # 0.3 10^3/ul (0.0-0.5); EOSINOPHILS % 4.7 % (0.0-7.0); HEMATOCRIT 35.9 % (37.0-47.0); HEMOGLOBIN 11.8 g/dl (12.0-16.0); IMMATURE GRANS #M 0.01 10^3/ul; IMMATURE GRANS % (M) 0.2 %; LYMPHOCYTES % 33.6 % (15.0-51.0); MEAN CORPUSCULAR HEMOGLOBIN 29.8 pg (29.0-33.0); MEAN CORPUSCULAR HGB CONC 32.9 g/dl (32.0-37.0); MEAN CORPUSCULAR VOLUME 90.7 fl (82.0-101.0); MEAN PLATELET VOLUME 9.6 fl (7.4-10.4); MONOCYTE # 0.5 10^3/ul (0.3-0.9); NEUTROPHIL # 3.2 10^3/ul (1.6-7.5); PLATELET COUNT 186 10^3/UL (140-415); RED BLOOD COUNT 3.96 10^6/ul (4.20-5.40); RED CELL DISTRIBUTION WIDTH 13.6 % (11.5-14.5)
[2018-01-06 13:44] LABS: ANION GAP 13 (8-16); BLOOD UREA NITROGEN 12 mg/dl (7-20); CALCIUM 9.1 mg/dl (8.4-10.2); CARBON DIOXIDE 25 mmol/L (21-31); CHLORIDE 109 mmol/L (97-110); CREATININE 0.65 mg/dl (0.44-1.00); GLUCOSE 100 mg/dl (70-220); POTASSIUM 4.4 mmol/L (3.5-5.1); SODIUM 143 mmol/L (135-144)
[2018-01-06 13:51] LABS: INR 0.84; PROTIME 11.6 Sec (11.9-14.9); PT RATIO 0.9
[2018-01-06 13:52] LABS: PARTIAL THROMBOPLASTIN TIME 27.8 Sec (25.0-35.0)
[2018-01-06 13:55] LABS: URINE BLOOD (Dip) POC Trace-intact (NEGATIVE); URINE GLUCOSE (Dip) POC Negative (NEGATIVE); URINE KETONES (Dip) POC Negative (NEGATIVE); URINE LEUKOCYTE EST (Dip) POC Trace (NEGATIVE); URINE NITRITE (Dip) POC Negative (NEGATIVE); URINE TOTAL PROTEIN POC Negative (NEGATIVE)
[2018-01-06 13:55] LABS: URINE PH (Dip) POC 6.5 (5.0-8.5)
[2018-01-06] MEDS: MECLIZINE 12.5 MG TAB PO (14:17)
== END 2018-01-06 14:56 | disposition home or self-care (01) ==
LOC: E/R 12:27
DX: D64.9 Anemia, unspecified (principal); I10 Essential (primary) hypertension; R00.1 Bradycardia, unspecified; R40.2142 Coma scale, eyes open, spontaneous, at arrival to emergency department; R40.2252 Coma scale, best verbal response, oriented, at arrival to emergency department; R40.2362 Coma scale, best motor response, obeys commands, at arrival to emergency department; Z87.891 Personal history of nicotine dependence
CPT/HCPCS: 36415; 70450; 80048; 81003; 85025; 85610; 85730; 93005; 99285-25

== ENCOUNTER 2018-09-26 14:51 | Emergency (ER) | payer MEDICARE, OTHER | END 2018-09-26 20:06 | disposition home or self-care (01) | LOC: E/R 14:51 | DX: T88.7XXA Unspecified adverse effect of drug or medicament, initial encounter (principal); F17.210 Nicotine dependence, cigarettes, uncomplicated; R40.2142 Coma scale, eyes open, spontaneous, at arrival to emergency department; R40.2362 Coma scale, best motor response, obeys commands, at arrival to emergency department; R40.2252 Coma scale, best verbal response, oriented, at arrival to emergency department; Y82.9 Unspecified medical devices associated with adverse incidents | CPT/HCPCS: 99282 ==

== ENCOUNTER 2018-10-03 21:08 | Inpatient (IN) | payer MEDICARE, OTHER ==
[2018-10-03 21:50] LABS: ADD MAN DIFF? NO
[2018-10-03 21:53] LABS: WHITE BLOOD COUNT 4.7 10^3/ul (4.8-10.8)
[2018-10-03 21:53] LABS: BASOPHILS % 0.4 % (0.0-2.0); EOSINOPHILS # 0.3 10^3/ul (0.0-0.5); EOSINOPHILS % 5.4 % (0.0-7.0); HEMATOCRIT 37.2 % (37.0-47.0); HEMOGLOBIN 12.3 g/dl (12.0-16.0); LYMPHOCYTES % 41.8 % (15.0-51.0); MEAN CORPUSCULAR HEMOGLOBIN 28.6 pg (29.0-33.0); MEAN CORPUSCULAR HGB CONC 33.1 g/dl (32.0-37.0); MEAN CORPUSCULAR VOLUME 86.5 fl (82.0-101.0); MEAN PLATELET VOLUME 9.3 fl (7.4-10.4); MONOCYTE # 0.3 10^3/ul (0.3-0.9); MONOCYTES % 7.3 % (0.0-11.0); NEUTROPHIL # 2.1 10^3/ul (1.6-7.5); NEUTROPHILS % 44.9 % (39.0-77.0); PLATELET COUNT 231 10^3/UL (140-415); RED CELL DISTRIBUTION WIDTH 13.3 % (11.5-14.5)
[2018-10-03 22:01] LABS: ADD UMIC YES; UR ASCORBIC ACID NEGATIVE (NEGATIVE); UR BILIRUBIN (Dip) NEGATIVE (NEGATIVE); UR BLOOD (Dip) NEGATIVE (NEGATIVE); UR CLARITY CLEAR (CLEAR); UR COLOR STRAW (YELLOW); UR GLUCOSE (Dip) NEGATIVE (NEGATIVE); UR KETONES (Dip) NEGATIVE (NEGATIVE); UR LEUKOCYTE ESTERASE (Dip) TRACE Leu/ul (NEGATIVE); UR NITRITE (Dip) NEGATIVE (NEGATIVE); UR RBC 1 /HPF (0-5); UR SPECIFIC GRAVITY (Dip) 1.008 (1.003-1.030); UR TOTAL PROTEIN (Dip) NEGATIVE (NEGATIVE); UR UROBILINOGEN (Dip) NEGATIVE (NEGATIVE); UR WBC 5 /HPF (0-5)
[2018-10-03 22:12] LABS: INR 0.88; PT RATIO 0.9
[2018-10-03 22:13] LABS: PARTIAL THROMBOPLASTIN TIME 29.1 Sec (23.0-35.0)
[2018-10-03 22:15] LABS: HEMOGLOBIN A1C 5.3 % (0-5.9)
[2018-10-03 22:20] LABS: ALANINE AMINOTRANSFERASE 13 IU/L (13-69); ALBUMIN 4.5 g/dl (3.3-4.9); ALBUMIN/GLOBULIN RATIO 1.28; ALKALINE PHOSPHATASE 83 IU/L (42-121); ANION GAP 11 (5-13); ASPARTATE AMINO TRANSFERASE 25 IU/L (15-46); BILIRUBIN,INDIRECT 0.9 mg/dl (0-1.1); BILIRUBIN,TOTAL 0.9 mg/dl (0.2-1.3); BLOOD UREA NITROGEN 10 mg/dl (7-20); CALCIUM 9.8 mg/dl (8.4-10.2); CARBON DIOXIDE 25 mmol/L (21-31); CHLORIDE 107 mmol/L (97-110); CHOLESTEROL 180 mg/dl (100-200); CREATININE 0.55 mg/dl (0.44-1.00); Estimated GFR > 60 mL/min (>60); GLUCOSE 91 mg/dl (70-220); HDL CHOLESTEROL 60 mg/dl (37-92); LDL CHOLESTEROL,CALCULATED 100 mg/dl; POTASSIUM 3.9 mmol/L (3.5-5.1); SODIUM 143 mmol/L (135-144); TRIGLYCERIDES 102 mg/dl (0-149)
[2018-10-03 22:23] LABS: AMPHETAMINE/METHAMPHETAMINE Negative (NEGATIVE); BARBITURATES Negative (NEGATIVE); BENZODIAZEPINES Negative (NEGATIVE); CANNABINOIDS Negative (NEGATIVE); COCAINE Negative (NEGATIVE); OPIATES Negative (NEGATIVE)
[2018-10-03 22:31] LABS: TROPONIN-I < 0.012 ng/ml (0.000-0.120)
[2018-10-03] MEDS ORDERED: ACETAMINOPHEN 325 MG TAB PO (23:00)
[2018-10-03] MEDS ORDERED: ONDANSETRON 4 MG INJ IV ×2 (23:00→23:30)
[2018-10-03] MEDS: BENZTROPINE 1 MG TAB PO (23:30)
[2018-10-03] MEDS ORDERED: ALBUTEROL/IPRATROPIUM (NEB) 3 ML AMP HHN (23:30)
[2018-10-03] MEDS ORDERED: NACL 0.9% 3 ML SYG IV (23:30)
[2018-10-03] MEDS: MEMANTINE 5 MG TAB PO (23:30)
[2018-10-04 00:24] LABS: CREATINE KINASE 95 IU/L (23-200)
[2018-10-04] MEDS: ASPIRIN 81 MG TAB PO ×2 (00:35→09:20)
[2018-10-04 00:41] LABS: CK INDEX 1.2; CK-MB 1.17 ng/ml (0.0-2.4); TROPONIN-I < 0.012 ng/ml (0.000-0.120)
[2018-10-04 05:19] LABS: ADD MAN DIFF? NO
[2018-10-04 05:21] LABS: WHITE BLOOD COUNT 4.5 10^3/ul (4.8-10.8)
[2018-10-04 05:21] LABS: BASOPHILS % 0.4 % (0.0-2.0); EOSINOPHILS # 0.3 10^3/ul (0.0-0.5); EOSINOPHILS % 5.5 % (0.0-7.0); HEMATOCRIT 33.9 % (37.0-47.0); HEMOGLOBIN 11.1 g/dl (12.0-16.0); LYMPHOCYTES # 2.2 10^3/ul (0.8-2.9); LYMPHOCYTES % 48.1 % (15.0-51.0); MEAN CORPUSCULAR HEMOGLOBIN 28.5 pg (29.0-33.0); MEAN CORPUSCULAR HGB CONC 32.7 g/dl (32.0-37.0); MEAN CORPUSCULAR VOLUME 87.1 fl (82.0-101.0); MEAN PLATELET VOLUME 9.5 fl (7.4-10.4); MONOCYTE # 0.4 10^3/ul (0.3-0.9); NEUTROPHIL # 1.7 10^3/ul (1.6-7.5); NEUTROPHILS % 37.8 % (39.0-77.0); PLATELET COUNT 205 10^3/UL (140-415); RED BLOOD COUNT 3.89 10^6/ul (4.20-5.40); RED CELL DISTRIBUTION WIDTH 13.2 % (11.5-14.5)
[2018-10-04 05:39] LABS: HEMOGLOBIN A1C 5.3 % (0-5.9)
[2018-10-04 05:46] LABS: CREATINE KINASE 86 IU/L (23-200)
[2018-10-04 05:54] LABS: ALANINE AMINOTRANSFERASE 17 IU/L (13-69); ALBUMIN 3.7 g/dl (3.3-4.9); ALBUMIN/GLOBULIN RATIO 1.27; ALKALINE PHOSPHATASE 67 IU/L (42-121); ANION GAP 7 (5-13); ASPARTATE AMINO TRANSFERASE 22 IU/L (15-46); BILIRUBIN,INDIRECT 0.9 mg/dl (0-1.1); BILIRUBIN,TOTAL 0.9 mg/dl (0.2-1.3); BLOOD UREA NITROGEN 11 mg/dl (7-20); CALCIUM 9.4 mg/dl (8.4-10.2); CARBON DIOXIDE 27 mmol/L (21-31); CHLORIDE 107 mmol/L (97-110); CHOL/HDL RATIO 3.1 RATIO; CHOLESTEROL 155 mg/dl (100-200); CREATININE 0.56 mg/dl (0.44-1.00); Estimated GFR > 60 mL/min (>60); GLUCOSE 88 mg/dl (70-220); HDL CHOLESTEROL 50 mg/dl (37-92); LDL CHOLESTEROL,CALCULATED 90 mg/dl; MAGNESIUM 1.7 mg/dl (1.7-2.5); POTASSIUM 3.5 mmol/L (3.5-5.1); SODIUM 141 mmol/L (135-144); TOTAL PROTEIN 6.6 g/dl (6.1-8.1); TRIGLYCERIDES 76 mg/dl (0-149)
[2018-10-04 05:55] LABS: CK INDEX 1.2
[2018-10-04 05:59] LABS: TROPONIN-I < 0.012 ng/ml (0.000-0.120)
[2018-10-04 06:20] LABS: THYROID STIMULATING HORMONE 0.867 MIU/L (0.465-4.680)
[2018-10-04] MEDS: MEMANTINE 5 MG TAB PO ×2 (09:20→20:15)
[2018-10-04] MEDS: clonAZEPAM 0.5 MG TAB PO ×2 (09:20→20:13)
[2018-10-04] MEDS: BENZTROPINE 1 MG TAB PO ×2 (09:20→20:14)
[2018-10-04] MEDS: ENOXAPARIN 40 MG/0.4 ML SYG SC (10:05)
[2018-10-04] MEDS: IOHEXOL 100 ML (11:28)
[2018-10-04] MEDS: SOD CHLORIDE 0.9% 100 ML (11:28)
[2018-10-04] MEDS: PROPRANOLOL 10 MG TAB PO ×2 (14:02→20:14)
[2018-10-04] MEDS: DONEPEZIL 5 MG TAB PO (14:02)
[2018-10-04] MEDS: QUETIAPINE 100 MG TAB PO (20:15)
[2018-10-04] MEDS: ESCITALOPRAM 10 MG TAB PO (20:15)
[2018-10-05] MEDS: ACETAMINOPHEN 325 MG TAB PO (04:37)
[2018-10-05] MEDS: ASPIRIN 81 MG TAB PO (09:17)
[2018-10-05] MEDS: BENZTROPINE 1 MG TAB PO ×2 (09:17→20:30)
[2018-10-05] MEDS: MEMANTINE 5 MG TAB PO ×2 (09:17→20:30)
[2018-10-05] MEDS: PROPRANOLOL 10 MG TAB PO ×2 (09:18→20:29)
[2018-10-05] MEDS: DONEPEZIL 5 MG TAB PO (09:19)
[2018-10-05] MEDS: clonAZEPAM 0.5 MG TAB PO ×2 (09:22→20:30)
[2018-10-05] MEDS: ENOXAPARIN 40 MG/0.4 ML SYG SC (09:30)
[2018-10-05] MEDS: MECLIZINE 12.5 MG TAB PO (11:10)
[2018-10-05] MEDS: QUETIAPINE 100 MG TAB PO (20:30)
[2018-10-05] MEDS: ESCITALOPRAM 10 MG TAB PO (20:30)
[2018-10-05] MEDS ORDERED: LORAZEPAM 2 MG INJ IV (23:30)
[2018-10-06] MEDS: HALOPERIDOL 5 MG INJ IM ×2 (00:23→01:14)
[2018-10-06] MEDS: DONEPEZIL 5 MG TAB PO (08:43)
[2018-10-06] MEDS: clonAZEPAM 0.5 MG TAB PO (08:43)
[2018-10-06] MEDS: MEMANTINE 5 MG TAB PO (08:44)
[2018-10-06] MEDS: ASPIRIN 81 MG TAB PO (08:44)
[2018-10-06] MEDS: BENZTROPINE 1 MG TAB PO (08:44)
[2018-10-06] MEDS: ENOXAPARIN 40 MG/0.4 ML SYG SC (08:50)
[2018-10-06] MEDS: PROPRANOLOL 20 MG TAB PO (09:00)
[2018-10-06] MEDS: PROPRANOLOL 10 MG TAB PO (09:00)
== END 2018-10-06 16:25 | disposition home or self-care (01) | DRG 57 ==
LOC: 6WM 22:38 → E/R 21:08 → 6WM 10-04 01:29
DX: G25.9 Extrapyramidal and movement disorder, unspecified (principal); R47.81 Slurred speech; K11.7 Disturbances of salivary secretion; R29.810 Facial weakness; F20.9 Schizophrenia, unspecified; Z87.891 Personal history of nicotine dependence
CPT/HCPCS: 36415; 70450; 70496; 70498; 70551; 71045; 80053; 80061; 80307; 81001; 82550; 82553; 83036; 83735; 84443; 84484; 85025; 85610; 85730; 92610; 93005; 93306; 97110; 97116; 97162; 97530; 99285-25